=== PATIENT | male | born 1985 | race Asian ===

== ENCOUNTER 2017-05-25 22:31 | Emergency (ER) | payer BC, OTHER ==
[~2017-05-25] VITALS: Ht 170.2 cm; Wt 81.9 kg
[2017-05-25 22:35] VITALS: TEMP 37.3; Ht 170.2 cm; Wt 81.9 kg
--- NOTE | 2017-05-25 22:53 | EMERGENCY ROOM VISIT NOTE ---
ED Visit Note First contact with patient: 22:42 CHIEF COMPLAINT: Hand laceration HISTORY OF PRESENT ILLNESS: This 31-year-old male patient presents to the emergency department ambulatory after cutting the left hand when he was using a screwdriver and the screwdriver slipped, causing a laceration/puncture at the base of the left thumb on the palmar aspect. The bleeding has stopped. Denies weakness or numbness of the hand or fingers. The patient denies any pain. The patient denies any other injuries. The patient's Tetanus shot is not up to date. REVIEW OF SYSTEMS: A 6 system review of systems was completed with positives and pertinent negatives listed in the HPI. ALLERGIES: None MEDICATIONS: None PMH: None SOCIAL HISTORY: The patient is a postdoctoral student PHYSICAL EXAM: Vital Signs: Reviewed Nurse's notes, vital signs stable. GENERAL : This is a 31-year-old male, in no acute distress, well-developed, well- nourished. SKIN: There is a 1 cm long laceration on the palmar aspect of the left hand at the base of the thumb. The edges gape apart with traction. There is no foreign material in the wound and it looks clean. There is no significant bleeding. No deep structures such as tendons, bones, or nerves are seen in the base of the wound. Normal strength and movement of the fingers and wrist. Capillary refill less than 2 seconds. Normal sensation to light and sharp touch. EMERGENCY DEPARTMENT COURSE: I examined the patient. Using sterile technique the wound was cleaned with Betadine. The area was sterilely draped. 2 ml of 1% buffered lidocaine was used to anesthetize the laceration on the hand. Once the patient was numb, the wound was copiously irrigated under pressure with sterile saline using an 18-gauge IV catheter. The wound was explored and there is no obvious tendon involvement.. The laceration was repaired using 1 simple interrupted 5-0 nylon sutures with the wound edges being well approximated. The patient tolerated the procedure well. The bleeding stopped. The area was cleaned with sterile saline and dressed with bacitracin ointment and bandage. The patient was given Td immunization. The patient was discharged home in good condition. DIAGNOSIS: Hand laceration DISCHARGE INSTRUCTIONS & TREATMENT: Keep wound clean and dry. Do not allow any crusting or dried blood to accumulate on sutures. If this occurs, use a 1:1 solution of hydrogen peroxide/water on a Q-tip to clean the wound. Use an antibiotic ointment for 3-4 days, then let wound dry. Suture removal in 7-10 days. Return sooner for any signs of infection (increasing redness, swelling, drainage). Ice and elevate for swelling and pain. Ibuprofen 600 mg every 6 hrs for pain. Keep covered when in sun until sutures removed then SPF 50 or higher for one year. Vitamin E oil if desired two weeks after suture removal for reduction of scar. Keflex 3 times daily for 7 days to help prevent infection Current/Historical Medications Scheduled Cephalexin Monohydrate (Keflex), 500 MG PO TID Allergies Coded Allergies: No Known Allergies (Unverified , 05/25/17) Vital Signs Date Time Temp Pulse Resp B/P (MAP) Pulse Ox O2 Delivery O2 Flow Rate FiO2 05/26/17 00:00 72 18 122/73 100 05/25/17 22:35 37.3 91 16 135/84 99 Room Air Medications Administered Medications (Trade) Dose Ordered Sig/Jennifer Route Start Time Stop Time Status Last Admin Dose Admin Diphtheria/ Pertussis/Tetanus Vacc (Adacel Inj) 0.5 ml ONCE ONCE IM. 05/25/17 23:00 05/25/17 23:01 DC 05/25/17 23:46 0.5 ML Cephalexin Monohydrate (Keflex 500MG Home Pack) 1 homepack NOW ONCE PO 05/25/17 23:45 05/25/17 23:46 DC 05/25/17 23:49 1 HOMEPACK Departure Information Impression Primary Impression: Hand laceration Dispostion Home / Self-Care Condition GOOD Prescriptions Cephalexin Monohydrate (Keflex) 500 Mg Cap 500 MG PO TID for 7 Days, #21 CAP Prov: Maggy Dominguez PA-C 05/25/17 Referrals No Doctor, Assigned (PCP) Patient Instructions ED Laceration All, [facility] Additional Instructions Keep wound clean and dry. Do not allow any crusting or dried blood to accumulate on sutures. If this occurs, use a 1:1 solution of hydrogen peroxide/ water on a Q-tip to clean the wound. Use an antibiotic ointment for 3-4 days, then let wound dry. Suture removal in 7-10 days. Return sooner for any signs of infection (increasing redness, swelling, drainage). Ice and elevate for swelling and pain. Ibuprofen 600 mg every 6 hrs for pain. Keep covered when in sun until sutures removed then SPF 50 or higher for one year. Vitamin E oil if desired two weeks after suture removal for reduction of scar. Keflex 3 times daily for 7 days to help prevent infection
[2017-05-25] MEDS ORDERED: XYLOCAINE 1%/SOD BICARB 20 ML VIAL INFIL ONE (23:00)
[2017-05-25] MEDS ORDERED: DIPHTHERIA/TETANUS/PERTUSSIS 0.5 ML SYR/VIAL IM. ONE (23:00)
[2017-05-25] MEDS ORDERED: CEPH500C PO (23:32)
[2017-05-25] MEDS ORDERED: CEPHALEXIN 500MG HOME PACK 1 EA BTL PO ONE (23:45)
[2017-05-26] VITALS: BP 122/73; PULSE 72; O2SAT 100
== END 2017-05-26 00:03 | disposition home or self-care (01) ==
LOC: C.EDB 22:34 → C.EDD 05-26 00:03
DX: S61.412A Laceration without foreign body of left hand, initial encounter (principal); W01.0XXA Fall on same level from slipping, tripping and stumbling without subsequent striking against object, initial encounter